=== PATIENT | male | born 1980 | race Caucasian/White ===

== ENCOUNTER 2017-01-18 01:37 | Observation (INO) ==
[2017-01-18 01:58] LABS: Bilirubin,Urine Negative (Negative); Blood,Urine Trace (Negative); Clarity,Urine Clear (Clear); Color,Urine Dark Yellow (Yellow); Glucose,Urine (UA) Normal (Normal); Ketones,Urine Negative (Negative); Leukocyte Esterase,Urine Negative (Negative); Nitrite,Urine Negative (Negative); Protein,Urine 30 mg/dL (Neg-Trace); Specific Gravity,Urine > 1.030 (1.010-1.025); Urobilinogen,Urine Normal (Normal)
[2017-01-18 02:00] LABS: Bacteria,Urine None Seen per hpf (None-Few); Hyaline Casts,Urine None Seen per lpf (None-Few); RBC,Urine 0-3 per hpf (0-3); Squamous Epithelial Cell,Urine Many per lpf (None-Few); WBC,Urine 0-3 per hpf (0-3)
[2017-01-18 02:14] LABS: Basophils % 0.4 %; Eosinophils # 0.3 K/mcL (0.0-0.6); Eosinophils % 4.6 %; Hematocrit 45.9 % (37.5-50.1); Hemoglobin 15.2 g/dL (12.9-16.9); Immature Granulocytes % 0.4 % (0-4); Immature Platelets 2.5 % (1.1-6.1); Lymphocytes # 2.1 K/mcL (0.6-4.6); Lymphocytes % 28.5 %; Mean Corpuscular HGB Conc 33.1 g/dL (31.6-35.5); Mean Corpuscular Hemoglobin 30.8 pg (28.0-33.3); Mean Corpuscular Volume 92.9 fL (83.0-100.0); Mean Platelet Volume 9.1 fL (9.4-12.4); Monocytes # 0.7 K/mcL (0.0-1.3); Monocytes % 8.7 %; Neutrophils # 4.3 K/mcL (1.6-8.9); Platelet Count 296 K/mcL (140-400); Red Blood Count 4.94 M/mcL (4.19-5.50); Red Cell Distribution Width 12.2 % (11.5-14.5); Segmented Neutrophils % 57.4 %
[2017-01-18 02:27] LABS: Alanine Aminotransferase 16 Units/L (0-55); Albumin/Globulin Ratio 1.1 (1.1-2.2); Alkaline Phosphatase 80 Units/L (38-126); Aspartate Amino Transferase 15 Units/L (5-34); BUN/Creatinine Ratio 12 (6-26); Bilirubin,Direct 0.3 mg/dL (0.0-0.5); Bilirubin,Indirect 0.5 mg/dL (0.0-1.2); Bilirubin,Total 0.8 mg/dL (0.2-1.2); Blood Urea Nitrogen 9 mg/dL (8-26); Calcium 9.3 mg/dL (8.6-10.8); Carbon Dioxide 27 mEq/L (19-29); Chloride 103 mEq/L (98-109); Globulin 3.5 g/dL (2.4-3.5); Glucose 96 mg/dL (70-99); Lipase 28 Units/L (8-78); Osmolality,Calculated 287 (280-300); Potassium 3.6 mEq/L (3.5-4.5); Sodium 139 mEq/L (136-145); Total Protein 7.5 g/dL (6.0-8.3); eGFR For African Americans > 60 (> 60); eGFR For Non-African Americans > 60 (> 60)
[2017-01-18] MEDS ORDERED: 0.9 % Sodium Chloride 1,000 ML IVC ONE (02:40)
--- NOTE | 2017-01-18 03:05 | Emergency Department Note ---
Disposition Clinical Impression: Abdominal pain Qualifiers: Abdominal location: right lower quadrant Qualified Code(s): R10.31 - Right lower quadrant pain Disposition: Admitted As Inpatient Condition: Fair Abdominal Pain HPI - General Chief Complaint: ED Abdominal Pain Stated Complaint: abd pain Time Seen by Provider: 01/18/17 02:09 Source: patient Mode of arrival: private vehicle Limitations: no limitations Nursing Notes Reviewed: Yes Vital Signs Reviewed: Yes - History of Present Illness Pt Subjective Complaint: abdominal pain Onset (ago): day(s) Consistency: constant, Worsening Location: RLQ Pain Severity: moderate Pain Scale: 4 Quality: aching, dull Radiation: none Migration to: no migration Improves with: nothing Worsens with: nothing Associated symptoms: Reports: nausea, vomiting. Denies: diarrhea, fever, chills , constipation, dysuria, hematemesis, hematochezia, melena, hematuria, anorexia , syncope Treatments prior to arrival: none - Related Data Allergies Allergy/AdvReac Type Severity Reaction Status Date / Time Penicillins Allergy See Verified 01/18/17 01:38 Comments All systems ED: reviewed and negative except as stated. Review of Systems: As Per HPI Constitutional: Denies: fever, chills, weakness Cardiovascular: Denies: chest pain, palpitations Gastrointestinal: Reports: abdominal pain, nausea, vomiting. Denies: diarrhea, constipation, hematemesis, melena, hematochezia Genitourinary: Denies: dysuria, hematuria Musculoskeletal: Denies: back pain, neck pain, joint swelling Integumentary: Denies: rash Neurological: Denies: headache, weakness Hematological/Lymphatic: Denies: easy bleeding, easy bruising Abdominal Pain PMH - Past Medical History Medical history: Reports: no medical history Male Surgical History: Reports: other (inguinal lymph nodes removed "a long time ago") Psychiatric history: Reports: no psych history - Social History Smoking status: Current every day smoker Alcohol use: Reports: occasionally Drug use: Reports: none Physical Exam - General Limitations: no limitations General appearance: alert, in no apparent distress - Head Head exam: atraumatic, normocephalic, normal inspection - Eye Eye exam: Present: normal appearance, PERRL, EOMI. Absent: scleral icterus, conjunctival injection, periorbital swelling - ENT ENT exam: mucous membranes moist - Neck Neck exam: Present: normal inspection - Chest Chest inspection: Present: normal inspection - Respiratory Respiratory exam: Present: normal lung sounds bilaterally. Absent: respiratory distress - Cardiovascular Cardiovascular exam: Present: regular rate, normal rhythm, normal heart sounds - Abdominal Exam Abdominal exam: Present: soft, tenderness, normal bowel sounds, tenderness at McBurney's Point. Absent: distention, guarding, rebound, rigidity, organomegaly , Rovsing's sign, mass, pulsatile mass Abdominal tenderness: Present: RLQ, moderate - Extremities Exam Extremities exam: Present: normal inspection, full ROM - Back Exam Back exam: Present: normal inspection, full ROM. Absent: CVA tenderness (R), CVA tenderness (L) - Neurological Exam Neurological exam: Present: alert, oriented X3, CN II-XII intact, normal gait - Psychiatric Psychiatric exam: Present: normal affect, normal mood - Skin Skin exam: Present: warm, dry, intact, normal color Course Course Narrative: Patient presents from work for evaluation of right lower quadrant abdominal pain. He states that the pain started yesterday morning when he woke up and it was diffuse. He had an episode of vomiting and continued pain throughout the day. He tried to go to work this evening and the pain seems to have migrated to the right lower quadrant. He denies diarrhea, constipation, dysuria or hematuria. He has had no previous abdominal surgeries and is otherwise healthy. Labs were ordered per advanced nursing protocol and are essentially normal. CT of the abdomen and pelvis has been ordered. Patient declines pain or nausea meds at this time. Patient has been seen by attending physician, Dr. Katz. He agrees with the assessment and plan. CT shows possible early appendicitis. Will consult surgery. Patient updated. He still declines pain or nausea meds. - Consultations Consultation #1: Case was discussed with Dr. Ramirez. He will accept the patient to his service. He states that he will hold ABX for now and watch patient as he is not convinced that the patient has acute appendicitis at this time. Time: 03:40 Vital Signs Temperature 98.4 F 01/18/17 01:39 Pulse Rate 92 01/18/17 01:39 Respiratory Rate 18 01/18/17 01:39 Blood Pressure 143/84 01/18/17 01:39 O2 Sat by Pulse Oximetry 99 01/18/17 01:39 Temperature 98.2 F 01/18/17 04:25 Pulse Rate 88 01/18/17 03:46 Respiratory Rate 18 01/18/17 04:25 Blood Pressure 140/82 01/18/17 04:25 O2 Sat by Pulse Oximetry 99 01/18/17 03:46 Oxygen Delivery Oxygen Delivery Room Air Abdominal Pain - Medical Records Medical records reviewed: Yes I reviewed the patient's medical records. - Lab Data Lab results reviewed: Yes I reviewed the patient's lab results. Lab results narrative: Laboratory Last Values WBC 7.5 K/mcL (4.3-11.1) 01/18/17 02:09 RBC 4.94 M/mcL (4.19-5.50) 01/18/17 02:09 Hgb 15.2 g/dL (12.9-16.9) 01/18/17 02:09 Hct 45.9 % (37.5-50.1) 01/18/17 02:09 MCV 92.9 fL (83.0-100.0) 01/18/17 02:09 MCH 30.8 pg (28.0-33.3) 01/18/17 02:09 MCHC 33.1 g/dL (31.6-35.5) 01/18/17 02:09 RDW 12.2 % (11.5-14.5) 01/18/17 02:09 Plt Count 296 K/mcL (140-400) 01/18/17 02:09 MPV 9.1 fL (9.4-12.4) L 01/18/17 02:09 Immature Gran % 0.4 % (0-4) 01/18/17 02:09 Seg Neutrophils % 57.4 % 01/18/17 02:09 Lymphocytes % 28.5 % 01/18/17 02:09 Monocytes % 8.7 % 01/18/17 02:09 Eosinophils % 4.6 % 01/18/17 02:09 Basophils % 0.4 % 01/18/17 02:09 Neutrophils # 4.3 K/mcL (1.6-8.9) 01/18/17 02:09 Lymphocytes # 2.1 K/mcL (0.6-4.6) 01/18/17 02:09 Monocytes # 0.7 K/mcL (0.0-1.3) 01/18/17 02:09 Eosinophils # 0.3 K/mcL (0.0-0.6) 01/18/17 02:09 Basophils # 0.0 K/mcL (0.0-0.2) 01/18/17 02:09 Immature Plt Fraction 2.5 % (1.1-6.1) 01/18/17 02:09 Sodium 139 mEq/L (136-145) 01/18/17 02:09 Potassium 3.6 mEq/L (3.5-4.5) 01/18/17 02:09 Chloride 103 mEq/L (98-109) 01/18/17 02:09 Carbon Dioxide 27 mEq/L (19-29) 01/18/17 02:09 BUN 9 mg/dL (8-26) 01/18/17 02:09 Creatinine 0.78 mg/dL (0.72-1.25) 01/18/17 02:09 Est GFR ( Amer) > 60 (> 60) 01/18/17 02:09 Est GFR (Non-Af Amer) > 60 (> 60) 01/18/17 02:09 BUN/Creatinine Ratio 12 (6-26) 01/18/17 02:09 Glucose 96 mg/dL (70-99) 01/18/17 02:09 Calculated Osmolality 287 (280-300) 01/18/17 02:09 Calcium 9.3 mg/dL (8.6-10.8) 01/18/17 02:09 Total Bilirubin 0.8 mg/dL (0.2-1.2) 01/18/17 02:09 Direct Bilirubin 0.3 mg/dL (0.0-0.5) 01/18/17 02:09 Indirect Bilirubin 0.5 mg/dL (0.0-1.2) 01/18/17 02:09 AST 15 Units/L (5-34) 01/18/17 02:09 ALT 16 Units/L (0-55) 01/18/17 02:09 Alkaline Phosphatase 80 Units/L (38-126) 01/18/17 02:09 Serum Total Protein 7.5 g/dL (6.0-8.3) 01/18/17 02:09 Albumin 4.0 g/dL (3.5-5.0) 01/18/17 02:09 Globulin 3.5 g/dL (2.4-3.5) 01/18/17 02:09 Albumin/Globulin Ratio 1.1 (1.1-2.2) 01/18/17 02:09 Lipase 28 Units/L (8-78) 01/18/17 02:09 Urine Color Dark Yellow (Yellow) 01/18/17 01:45 Urine Clarity Clear (Clear) 01/18/17 01:45 Urine pH 6.0 pH Units (5.0-8.0) 01/18/17 01:45 Ur Specific [place] > 1.030 (1.010-1.025) H 01/18/17 01:45 Urine Protein 30 mg/dL (Neg-Trace) H 01/18/17 01:45 Urine Glucose (UA) Normal mg/dL (Normal) 01/18/17 01:45 Urine Ketones Negative mg/dL (Negative) 01/18/17 01:45 Urine Blood Trace (Negative) H 01/18/17 01:45 Urine Nitrite Negative (Negative) 01/18/17 01:45 Urine Bilirubin Negative (Negative) 01/18/17 01:45 Urine Urobilinogen Normal mg/dL (Normal) 01/18/17 01:45 Ur Leukocyte Esterase Negative (Negative) 01/18/17 01:45 Urine Microscopic RBC 0-3 per hpf (0-3) 01/18/17 01:45 Urine Microscopic WBC 0-3 per hpf (0-3) 01/18/17 01:45 Ur Squamous Epith Cells Many per lpf (None-Few) H 01/18/17 01:45 Urine Bacteria None Seen per hpf (None-Few) 01/18/17 01:45 Hyaline Casts None Seen per lpf (None-Few) 01/18/17 01:45 Ur Culture Indicated? NO (NO) 01/18/17 01:45 Result diagrams: 01/18/17 02:09 01/18/17 02:09 Lab Results 01/18/17 01/18/17 01/18/17 Range/Units 01:45 02:09 02:09 WBC 7.5 (4.3-11.1) K/mcL RBC 4.94 (4.19-5.50) M/mcL Hgb 15.2 (12.9-16.9) g/dL Hct 45.9 (37.5-50.1) % MCV 92.9 (83.0-100.0) fL MCH 30.8 (28.0-33.3) pg MCHC 33.1 (31.6-35.5) g/dL RDW 12.2 (11.5-14.5) % Plt Count 296 (140-400) K/mcL MPV 9.1 L (9.4-12.4) fL Immature Gran % 0.4 (0-4) % Seg Neutrophils % 57.4 % Lymphocytes % 28.5 % Monocytes % 8.7 % Eosinophils % 4.6 % Basophils % 0.4 % Neutrophils # 4.3 (1.6-8.9) K/mcL Lymphocytes # 2.1 (0.6-4.6) K/mcL Monocytes # 0.7 (0.0-1.3) K/mcL Eosinophils # 0.3 (0.0-0.6) K/mcL Basophils # 0.0 (0.0-0.2) K/mcL Immature Plt Fraction 2.5 (1.1-6.1) % Sodium 139 (136-145) mEq/L Potassium 3.6 (3.5-4.5) mEq/L Chloride 103 (98-109) mEq/L Carbon Dioxide 27 (19-29) mEq/L BUN 9 (8-26) mg/dL Creatinine 0.78 (0.72-1.25) mg/dL Est GFR ( Amer) > 60 (> 60) Est GFR (Non-Af Amer) > 60 (> 60) BUN/Creatinine Ratio 12 (6-26) Glucose 96 (70-99) mg/dL Calculated Osmolality 287 (280-300) Calcium 9.3 (8.6-10.8) mg/dL Total Bilirubin 0.8 (0.2-1.2) mg/dL Direct Bilirubin 0.3 (0.0-0.5) mg/dL Indirect Bilirubin 0.5 (0.0-1.2) mg/dL AST 15 (5-34) Units/L ALT 16 (0-55) Units/L Alkaline Phosphatase 80 (38-126) Units/L Serum Total Protein 7.5 (6.0-8.3) g/dL Albumin 4.0 (3.5-5.0) g/dL Globulin 3.5 (2.4-3.5) g/dL Albumin/Globulin Ratio 1.1 (1.1-2.2) Lipase 28 (8-78) Units/L Urine Color Dark Yellow (Yellow) Urine Clarity Clear (Clear) Urine pH 6.0 (5.0-8.0) pH Units Ur Specific [place] > 1.030 H (1.010-1.025) Urine Protein 30 H (Neg-Trace) mg/dL Urine Glucose (UA) Normal (Normal) mg/dL Urine Ketones Negative (Negative) mg/dL Urine Blood Trace H (Negative) Urine Nitrite Negative (Negative) Urine Bilirubin Negative (Negative) Urine Urobilinogen Normal (Normal) mg/dL Ur Leukocyte Esterase Negative (Negative) Urine Microscopic RBC 0-3 (0-3) per hpf Urine Microscopic WBC 0-3 (0-3) per hpf Ur Squamous Epith Cells Many H (None-Few) per lpf Urine Bacteria None Seen (None-Few) per hpf Hyaline Casts None Seen (None-Few) per lpf Ur Culture Indicated? NO (NO) - Radiology Data Radiology results reviewed: Yes I reviewed the patient's radiology results. Abdomen/Pelvis CT 01/18/17 02:40 IMPRESSION: Even though the appendix is not significantly dilated, it is slightly hyperemic with a thickened wall and very mild surrounding inflammatory changes. Overall findings are suspicious for early or mild acute appendicitis in the proper clinical setting. No appendicolith identified. No evidence of rupture, including no free-fluid, no free intraperitoneal air or no abscess. Findings were discussed with Dr. Katz At 3:31 am on 01/18/2017. D/ / Bassam Chapman MD / Bassam Chapman MD Interpreting Provider: Bassam Chapman MD Attestation Statement - Attestation Attestation: I, James Katz DO have provided [id number] time during the care of this patient. Detailed review the presentation, symptoms, medical history were discussed and reviewed with the mid-level provider ( ) PA-C/[employer]. Medical intervention labs and imaging studies were reviewed in detail. See full documentation of physical exam and course of care in the mid-level provider's note. I agree with the determined course of care, medical interventio,n and disposition put forth by the mid-level provider. See below documentation for changes or alterations in documentation. 36-year-old male presents emergency room with complaint of abdominal pain progressing over the last several days. Symptoms started off diffuse and now isolated in the right lower quadrant of the abdomen. CT confirms acute early appendicitis. Patient discussed with the operative physician Dr. Ramirez will be admitted for surgical evaluation. Patient is otherwise stable. See documentation in the mid-level provider's note. Physical exam completely by myself at the bedside lungs are clear heart is regular abdomen esophagitis of tenderness specific to the right lower quadrant of the abdomen patient is guarding no rigidity no peritoneal symptoms at this time. Patient admission completed in surgical intervention performed
[2017-01-18] MEDS ORDERED: *HR* HYDROmorphone (PF) 1 MG/ML SYRINGE IVP PRN (05:31)
[2017-01-18] MEDS ORDERED: Ondansetron 4 MG/2 ML VIAL IVP PRN (05:32)
[2017-01-18] MEDS: 0.9 % Sodium Chloride 1,000 ML IVC SCH ×2 (05:58→16:50)
[2017-01-18] MEDS ORDERED: *HR* OxyCODONE/APAP 10/325 TABLET PO PRN (06:52)
--- NOTE | 2017-01-18 06:54 | General Surg History&Physical ---
Date of Encounter: 01/19/17 Time of Encounter: 06:53 Assessment and Plan (1) Right lower quadrant abdominal pain Current Visit: Yes Status: Acute The assessment and plan as outlined above was discussed with the patient and/or family members who expressed understanding and agreement. All questions were answered. Discussed with the patient; his differential diagnosis includes gastritis versus acute appendicitis (very early). I think it would be worthwhile to treat him first with IV fluids and antibiotics to see if this resolves without any type of surgical intervention. We will allow clear liquids and encouraged out of bed and ambulation. If his pain symptoms starts to diminish then he can be treated conservatively. Discussed with patient he agrees to the above plan. History of Present Illness Chief complaint: Right lower abdominal pain HPI: Mr. Grigsby is a 36 year old male with no significant past medical history who states that he started having right lower quadrant abdominal pain Tuesday morning. He admits to an episode of nausea and vomiting on that day but has not had any nausea vomiting since. He has had a loss of appetite and denies any diarrhea. He has a bowel movement once per day without any rectal bleeding and denies any fevers or chills. He denies any trauma or injury to the abdominal area as well. Past Med Surg Social Fam HX - Past Medical History Medical history: no medical history Psychiatric history: no psych history - Past Surgical History Surgical History: other (Bilateral inguinal lymph node biopsy) - Social History Smoking Status: Current every day smoker Packs per day: 1/2 Smokeless Tobacco Status: No Alcohol use: occasionally Drug use: none Medications and Allergies No Known Home Drugs 01/18/17 [History] 3 Allergy/AdvReac Type Severity Reaction Status Date / Time Penicillins Allergy See Verified 01/18/17 01:38 Comments Review of Systems All systems PM: reviewed and no additional remarkable complaints except as stated All systems PM: A 10-system review of systems was performed and is negative for pertinent findings except as documented above in the HPI. General Surgery Exam Initial Vital Signs Temp Pulse Resp BP Pulse Ox 98.4 F 92 18 143/84 99 01/18/17 01:39 01/18/17 01:39 01/18/17 01:39 01/18/17 01:39 01/18/17 01:39 - Eyes PERRL, normal ocular movement - Respiratory normal expansion, normal respiratory effort, clear to auscultation - Cardiovascular Cardiovascular exam: Present: RRR, no murmurs/rubs/gallops - Abdomen Abdomen general surgery: Present: bowel sounds present, soft, tender Abdominal Tenderness: Present: RLQ (No masses palpated. Mild to moderate pain on palpation.) - Neurologic Present: CN 2-12 grossly intact - Musculoskeletal Present: other (No clubbing, cyanosis, or edema) Results - Labs 01/19/17 04:45 01/18/17 02:09 Abnormal lab results MPV 9.1 fL (9.4-12.4) L 01/18/17 02:09 Ur Specific [place] > 1.030 (1.010-1.025) H 01/18/17 01:45 Urine Protein 30 mg/dL (Neg-Trace) H 01/18/17 01:45 Urine Blood Trace (Negative) H 01/18/17 01:45 Ur Squamous Epith Cells Many per lpf (None-Few) H 01/18/17 01:45 All other labs normal. - Imaging CT scan - abdomen: report reviewed, image reviewed (Personally reviewed by me. No signs of dilation of the appendix or appendicolith but there was question of hyperremia. The report suggests possible early appendicitis however there are some symptoms of small bowel in the area with fluid which may be related to gastroenteritis.)
[2017-01-18] MEDS: MetroNIDAZOLE 500 MG/100 ML 500 MG/100 ML BAG IVPB SCH ×2 (07:56→16:47)
[2017-01-18] MEDS: Levofloxacin 500 MG/100 ML 500 MG/100 ML BAG IVPB SCH (07:57)
[2017-01-18] MEDS: Ketorolac 30 MG/ML VIAL IVP SCH ×2 (12:10→18:18)
[2017-01-18] MEDS: *HR* HYDROmorphone (PF) 1 MG/ML SYRINGE IVP PRN (14:50)
[2017-01-18] MEDS: *HR* Heparin 5,000 UNIT/ML VIAL SQ SCH (18:21)
[2017-01-19] MEDS: MetroNIDAZOLE 500 MG/100 ML 500 MG/100 ML BAG IVPB SCH ×2 (00:01→08:20)
[2017-01-19] MEDS: 0.9 % Sodium Chloride 1,000 ML IVC SCH ×2 (04:03→14:39)
[2017-01-19 05:43] LABS: Basophils % 0.6 %; Eosinophils # 0.3 K/mcL (0.0-0.6); Eosinophils % 4.6 %; Hematocrit 42.7 % (37.5-50.1); Hemoglobin 14.4 g/dL (12.9-16.9); Immature Granulocytes % 0.1 % (0-4); Lymphocytes # 2.2 K/mcL (0.6-4.6); Lymphocytes % 33.3 %; Mean Corpuscular HGB Conc 33.7 g/dL (31.6-35.5); Mean Corpuscular Hemoglobin 31.7 pg (28.0-33.3); Mean Corpuscular Volume 94.1 fL (83.0-100.0); Mean Platelet Volume 9.9 fL (9.4-12.4); Monocytes # 0.6 K/mcL (0.0-1.3); Monocytes % 9.5 %; Neutrophils # 3.5 K/mcL (1.6-8.9); Platelet Count 212 K/mcL (140-400); Red Blood Count 4.54 M/mcL (4.19-5.50); Red Cell Distribution Width 12.2 % (11.5-14.5); Segmented Neutrophils % 51.9 %
[2017-01-19] MEDS: Ketorolac 30 MG/ML VIAL IVP SCH ×4 (05:55→17:21)
[2017-01-19] MEDS: *HR* Heparin 5,000 UNIT/ML VIAL SQ SCH (05:56)
--- NOTE | 2017-01-19 07:27 | General Surgery Progress Note ---
Date of Encounter: 01/19/17 Time of Encounter: 07:26 - Assessment and Plan (1) Right lower quadrant abdominal pain Current Visit: Yes Status: Acute Isolated to the patient given his persistent abdominal pain despite a normal white count I think it would be appropriate to go ahead and proceed with a laparoscopic appendectomy. Risks and benefits have been discussed with the patient he agrees to the above plan. Subjective Patient reports: other (The patient states that he still has the same RLQ abdominal pain. NO change.) Objective Vital Signs - Last 8 Hours Temp Pulse Resp BP Pulse Ox 01/19/17 06:42 99.1 F 49 15 113/69 97 01/19/17 03:34 100.3 F H 45 15 109/71 97 Intake and Output 01/18/17 01/18/17 01/19/17 15:59 23:59 07:59 Intake Total 200 / 200 1580 / 1580 1100 / 1100 Output Total 300 / 300 1200 / 1200 0 / 0 Balance -100 / -100 380 / 380 1100 / 1100 Intake: IV Fluids 200 / 200 1100 / 1100 1100 / 1100 0.9 % Sodium Chloride 1, 1000 / 1000 1000 / 1000 000 ML @ 100 mls/hr IVC . Q10H MATTHIAS Rx#:[id number] Levaquin Premix 500mg/ 100 / 100 100mL 500 mg In 100 ml @ 100 mls/hr IVPB DAILY MATTHIAS Rx#:[id number] Flagyl Premix 500 MG/100 100 / 100 100 / 100 100 / 100 ML 500 mg In 100 ml @ 100 mls/hr IVPB Q8HR MATTHIAS Rx# :[id number] Oral 0 / 0 480 / 480 Output: Urine 300 / 300 1200 / 1200 0 / 0 Other: Meal clears Dinner Percent of Meal Consumed 0% # Bowel Movements 0 Weight 72.18 kg Patient Weight 01/19/17 23:59 Weight 72.18 kg - Eyes PERRL, normal ocular movement - Abdomen Abdomen: Present: soft, tender Abdominal Tenderness: RLQ - Labs 01/19/17 04:45 01/18/17 02:09 Consult Discharge Plan - Plan Referrals: NONE,PCP [Primary Care Provider] -
[2017-01-19] MEDS: Levofloxacin 500 MG/100 ML 500 MG/100 ML BAG IVPB SCH (08:20)
[2017-01-19] MEDS: *HR* HYDROmorphone (PF) 1 MG/ML SYRINGE IVP PRN ×2 (09:09→17:21)
--- NOTE | 2017-01-19 14:53 | Anesthesia Evaluation PreOp ---
Date of Encounter: 01/19/17 Time of Encounter: 15:16 - Past History Planned Operation: Lap appendicitis Cardiac History: Denies any Significant Hx Pulmonary History: Smoker DATA WAREHOUSING ENGINEER History: Denies Any Significant HX Other Medical History: Denies Any Significant HX Anesthesia History: No Prior Anesthetic Complications, Past Anesthesia (lymph node biopsy at age 4) Alcohol Use: occasionally Drug use: none Medications and Allergies No Known Home Drugs 01/18/17 [History] 3 Allergy/AdvReac Type Severity Reaction Status Date / Time Penicillins Allergy See Verified 01/18/17 01:38 Comments - Meds/Allergy Pre-op Review Medications Reviewed: Yes Allergies Reviewed: Yes Beta Blockers on Current Med List: No Anesthesia Results - Labs 01/19/17 04:45 01/18/17 02:09 Anesthesia Exam Last Vital Signs Temp 97.8 F 01/19/17 14:25 Pulse 47 01/19/17 14:25 Resp 16 01/19/17 14:25 BP 109/62 01/19/17 14:25 Pulse Ox 98 01/19/17 14:25 Weight: 72 kg - HEENT Pupil (Motor): Pupils equal, EOMI Mallampati: II Teeth: Normal Oral Opening: Greater than 3 - DATA WAREHOUSING ENGINEER LOC: Oriented DATA WAREHOUSING ENGINEER Motor: Normal RUE, Normal LUE, Normal RLE, Normal LLE, Normal Face - Cardiac Rhythm: Regular Murmur: None - Pulmonary Breath Sounds: bilateral Clear Respiratory Effort: Symmetrical Anesthesia Assess/Plan ASA Score: 2 Modified [place] Scale for Level of Consciousness: Cooperative, oriented, and tranquil Anesthetic Plan: General Monitoring Plan: Standard Monitors Recovery Plan: PACU
[2017-01-19] MEDS ORDERED: Lidocaine -MPF 4% 5 ML AMPUL ONE (15:18)
[2017-01-19] MEDS ORDERED: *HR* FentaNYL (PF) 100 MCG/2 ML VIAL ONE (15:19)
[2017-01-19] MEDS ORDERED: *HR* Midazolam HCl 2 MG/2 ML VIAL ONE (15:19)
[2017-01-19] MEDS ORDERED: *HR* Propofol 200 MG/20 ML VIAL IVP ONE (15:19)
[2017-01-19] MEDS ORDERED: Lidocaine -MPF 2% 2 ML VIAL ONE (15:20)
[2017-01-19] MEDS ORDERED: Ondansetron 4 MG/2 ML VIAL ONE (15:31)
[2017-01-19] MEDS ORDERED: Dexamethasone 4 MG/ML VIAL ONE (15:31)
[2017-01-19] MEDS ORDERED: *HR* HYDROmorphone (PF) 1 MG/ML SYRINGE IVP PRN (15:49)
[2017-01-19] MEDS ORDERED: *HR* Meperidine 25 MG/ML SYRINGE IVP PRN (15:49)
[2017-01-19] MEDS ORDERED: Albuterol 2.5 MG/3 ML NEBULIZER IH ONE (15:49)
[2017-01-19] MEDS ORDERED: Naloxone 0.4 MG/ML INJ IVP PRN (15:49)
[2017-01-19] MEDS ORDERED: Ondansetron 4 MG/2 ML VIAL IVP ONE (15:49)
[2017-01-19] MEDS ORDERED: *HR* HYDROmorphone 2 MG/ML SYRINGE ONE (15:50)
[2017-01-19] MEDS ORDERED: Neostigmine Methylsulfate 3 MG/3 ML SYRINGE ONE (15:52)
[2017-01-19] MEDS ORDERED: Plasma-Lyte A (PH 7.4) 1,000 ML IVC SCH (16:00)
--- NOTE | 2017-01-19 16:18 | Operative Note ---
Date of procedure: 01/19/17 Pre-op diagnosis: Rignt lower abdominal pain, abnormal CT Post-op diagnosis: other (Early appendicitis, umbilical hernia.) Procedure: 1. Laparoscopic appendectomy. 2. Open umbilical hernia repair. Anesthesia: MICHELLE Surgeon: Cipriano Ramirez Furnace Converter Other: MATTHEW Acevedo Estimated blood loss (cc): 4 Specimen: appendix Condition: stable Disposition: PACU Procedure in Detail: Date of surgery: 01/19/17 After properly identifying the patient, the patient was brought to the operating room and placed in the supine position. After proper IV sedation was achieved followed by general endotracheal intubation, the patient's abdomen was prepped and draped in a normal sterile fashion. Timeout was performed noting the patient's name and type of procedure to be performed. On examination the patient did have evidence of a small reducible umbilical hernia defect. A supraumbilical incision with an 11 blade scalpel was made down to the level of the abdominal hernia defect. Dissection between the dermis of the umbilicus and the hernia sac was performed with sharp dissection. Once the sac was freed was reduced within the abdomen and a 12 mm port was placed in the hernia defect. A laparoscopic camera was placed to the port which showed no injury to the intra-abdominal organs upon entry and the abdomen was insufflated with carbon dioxide. A suprapubic 5 mm port and a left lower quadrant 5 mm port were placed under direct camera visualization. The patient was placed in a Trendelenburg position with this left side tilted downwards in the right lower quadrant was examined. The appendix was noted and was not dilated and has some slight hyperemia along the serosal surface possibly consistent with early appendicitis. There were no other abnormalities visualized in the right lower quadrant or pelvis. The appendix was retracted superiorly and the [place] dissector was used to dissect between the base of the appendix and the mesentery. A laparoscopic LISA stapler was used to transect across both the base of the appendix and the pedicle and the appendix was removed from the abdomen via an Endobag. Reinspection of the right lower quadrant show maintenance of hemostasis and the right lower quadrant and pelvis were irrigated with normal saline solution. Repeat reinspection demonstrated continued maintenance and the decision was made to complete the surgical procedure by removing all ports after the abdomen was desufflated. The umbilicus was examined and the hernia defect was repaired with a figure-of- eight 0 Vicryl suture. Subcutaneous cutaneous tissue was reapproximated with interrupted 3-0 Vicryl sutures and the epidermal and dermal layers were reapproximated with a running 4-0 Monocryl suture for the remaining incisions., Sponge, and instrument counts were correct 2 and the incisions were covered with Steri-Strips and Band-Aids. The patient was aroused from IV sedation, extubated in the operating room without complication, and transported to the recovery room in stable condition.
[2017-01-19] MEDS ORDERED: Acetaminophen IV 1,000 MG/100 ML INFUS..BTL IVPB ONE (16:34)
--- NOTE | 2017-01-19 16:46 | Discharge Summary ---
Date of Encounter: 01/19/17 Time of Encounter: 04:00 - Discharge Diagnosis (1) Acute appendicitis Priority: Primary Status: Acute Qualifiers: Qualified Code(s): K35.80 - Unspecified acute appendicitis - Discharge Medications Prescriptions: OxyCODONE/APAP 10/325 [Percocet 10/325 MG] 1 each PO Q6HR PRN #26 tablet PRN Reason: Pain Docusate [Colace] 100 mg PO BID #30 capsule Home Medications: Docusate [Colace] 100 mg PO BID #30 capsule 01/19/17 [Rx] OxyCODONE/APAP 10/325 [Percocet 10/325 MG] 1 each PO Q6HR PRN #26 tablet [Rx] Allergies/Adverse Reactions: 3 Allergy/AdvReac Type Severity Reaction Status Date / Time Penicillins Allergy See Verified 01/18/17 01:38 Comments General Surgery Exam Initial Vital Signs Temp Pulse Resp BP Pulse Ox 98.4 F 92 18 143/84 99 01/18/17 01:39 01/18/17 01:39 01/18/17 01:39 01/18/17 01:39 01/18/17 01:39 - General physical appearance well developed, well nourished, no distress - Eyes normal ocular movement - ENT atraumatic, normocephalic - Neck trachea midline - Respiratory normal expansion, normal respiratory effort, clear to auscultation - Cardiovascular Cardiovascular exam: Present: RRR - Abdomen Abdomen general surgery: Present: bowel sounds present, soft, tender (expected postoperative tenderness) - Incision Incision: Present: clean and dry, intact - Musculoskeletal Present: normal posture - Psychiatric Psychiatric general surgery: Present: appropriate, speech is normal Date of admission: 01/18/17 04:08 Primary care physician: PCP NONE Discharging clinician: Tom Kam Anticipated date of discharge: 01/19/17 - Patient Status Disposition: Home, Self-Care Condition: Fair Functional capacity at discharge: independent ambulation Overall status at discharge: patient is progressing back to baseline - Discharge Instructions Follow Up With: NONE,PCP [Primary Care Provider] - Forms: Work/School Release Additional Instructions: 1. Do not lift, pull, or push more than 15 lbs until cleared to do so. 2. Can shower tomorrow. Do not use bathtub or swim for [address] until not taking pain medication and you feel that you can safely use the brakes. Follow up with Dr. Ramirez's office. Thy will call with appointment. - Diet and Activity Activity: resume usual activities as tolerated (except as noted in additional instructions) Diet: advance to your usual diet - Hospital Course Hospital course: Mr. Grigsby is a 36 year old male who presented with abdominal pain and nausea. CT scan on admission was equivocal for acute appendicitis, so he was treated conservatively with bowel rest and antibiotics. The following day, when he was still having significant symptoms, he was taken for laparoscopic appendectomy and open umbilical hernia repair by Dr. Ramirez without complication. The patient tolerated the procedure well. He is being discharged in stable condition. - Time Spent with Patient Total time spent providing and/or coordinating discharge services: Less than 30 minutes Labs on day of discharge: Labs from last 24 hours 01/19/17 04:45 WBC 6.7 RBC 4.54 Hgb 14.4 Hct 42.7 MCV 94.1 MCH 31.7 MCHC 33.7 RDW 12.2 Plt Count 212 MPV 9.9 Immature Gran % 0.1 Seg Neutrophils % 51.9 Lymphocytes % 33.3 Monocytes % 9.5 Eosinophils % 4.6 Basophils % 0.6 Neutrophils # 3.5 Lymphocytes # 2.2 Monocytes # 0.6 Eosinophils # 0.3 Basophils # 0.0
--- NOTE | 2017-01-19 17:12 | Anesthesia Evaluation Post Op ---
Date of Encounter: 01/19/17 Time of Encounter: 16:50 - Vital Signs Vital Signs: Last Vital Signs Temp 97.3 F L 01/19/17 16:48 Pulse 56 01/19/17 16:48 Resp 18 01/19/17 16:48 BP 126/72 01/19/17 16:48 Pulse Ox 95 01/19/17 16:48 - Lungs Lungs: Clear Ascult./Percussion - Airway Airway: Non-obstructed - Cardiovascular Regular Rate - Mental Status Mental Status: Alert & Oriented, Answers Appropriately - Pain Pain Scale: 4 - Nausea Vomiting Nausea Vomiting: Not Present - Hydration Hydration: Ice chips - Discharge PostOp Status: Transfer Patient to floor
[2017-01-19 17:38] VITALS: BP 107/61
== END 2017-01-19 18:40 | disposition home or self-care (01) ==
LOC: 3ANU 01:37 → EMEROO 01:37 → 3ANU 04:52
PROVIDERS: ADMIT Surgery; ATTEND Surgery